=== PATIENT | male | born 1940 | race Caucasian/White ===

== ENCOUNTER 2018-05-16 07:58 | Emergency (ER) | payer MEDICARE, OTHER ==
[~2018-05-16] VITALS: Ht 172.7 cm; Wt 90.0 kg
[2018-05-16] MEDS ORDERED: ketorolac trometh. 30mg/ml inj. IM ONE (08:25)
[2018-05-16] MEDS ORDERED: HYDR-3965 PO (09:40)
[2018-05-16 09:52] VITALS: BP 145/89
== END 2018-05-16 09:53 | disposition home or self-care (01) ==
LOC: ER 07:59
DX: R07.89 Other chest pain (principal); E78.00 Pure hypercholesterolemia, unspecified; W01.0XXA Fall on same level from slipping, tripping and stumbling without subsequent striking against object, initial encounter; Y93.89 Activity, other specified; Y92.89 Other specified places as the place of occurrence of the external cause; Y99.8 Other external cause status
CPT/HCPCS: 71046; 96372; 99284; J1885